=== PATIENT | female | born 1930 ===

== ENCOUNTER 2016-09-18 07:30 | Outpatient (RCR) | payer OTHER ==
[~2016-09-18 07:30] MED LIST: AMLODIPINE BESYL5 MG ORAL; BP MED PO
== END 2016-09-27 | disposition home or self-care (01) ==
LOC: PTY 07:30
PROVIDERS: ATTEND Internal Medicine
DX: M12.811 Other specific arthropathies, not elsewhere classified, right shoulder (principal)
CPT/HCPCS: 97110; 97140; 97162; G0283

== ENCOUNTER 2016-10-01 07:45 | Outpatient (RCR) | payer OTHER | END 2016-10-27 | disposition home or self-care (01) | LOC: PTY 07:45 | PROVIDERS: ATTEND Internal Medicine | DX: M12.811 Other specific arthropathies, not elsewhere classified, right shoulder (principal) | CPT/HCPCS: 97110; 97140; G0283 ==

== ENCOUNTER 2016-10-28 08:15 | Outpatient (RCR) | payer OTHER | END 2016-11-27 | disposition home or self-care (01) | LOC: PTY 08:15 | PROVIDERS: ATTEND Internal Medicine | DX: M12.811 Other specific arthropathies, not elsewhere classified, right shoulder (principal) | CPT/HCPCS: 97110; 97140; G0283 ==